=== PATIENT | female | born 1990 | race Caucasian/White ===

== ENCOUNTER 2016-10-15 12:52 | Emergency (ER) | payer MEDICAID ==
[~2016-10-15] VITALS: Ht 152.4 cm; Wt 75.0 kg
[2016-10-15 12:55] VITALS: Ht 152.4 cm; Wt 75.0 kg
[2016-10-15] MEDS ORDERED: ONDANSETRON (ODT) 4 MG TAB ODT STA (14:39)
[2016-10-15 14:59] LABS: URINE BLOOD (Dip) POC 2+ (NEGATIVE)
[2016-10-15 15:16] LABS: ADD SCAN DIFF NO
[2016-10-15 15:18] LABS: ADD UMIC YES; URINE BILIRUBIN (Dip) NEGATIVE (NEGATIVE); URINE BLOOD (Dip) 3+ (NEGATIVE); URINE GLUCOSE (Dip) NEGATIVE (NEGATIVE); URINE KETONES (Dip) 15 (NEGATIVE); URINE LEUKOCYTE ESTERASE (Dip) NEGATIVE (NEGATIVE); URINE NITRITE (Dip) NEGATIVE (NEGATIVE); URINE TOTAL PROTEIN (Dip) 1+ (NEGATIVE); URINE UROBILINOGEN (Dip) 0.2 E.U./dL (0.1-1.0)
[2016-10-15 15:19] LABS: BASOPHIL # 0.1 10^3/ul (0.0-0.1); BASOPHILS % 0.5 % (0.0-2.0); EOSINOPHILS % 0.4 % (0.0-7.0); HEMATOCRIT 37.4 % (37.0-47.0); HEMOGLOBIN 12.6 g/dl (12.0-16.0); LYMPHOCYTES # 1.3 10^3/ul (0.8-2.9); LYMPHOCYTES % 13.9 % (15.0-51.0); MEAN CORPUSCULAR HGB CONC 33.7 g/dl (32.0-37.0); MONOCYTE # 0.5 10^3/ul (0.3-0.9); MONOCYTES % 5.7 % (0.0-11.0); NEUTROPHIL # 7.4 10^3/ul (1.6-7.5); NEUTROPHILS % 79.1 % (39.0-77.0); PLATELET COUNT 313 10^3/UL (140-415); RED CELL DISTRIBUTION WIDTH 13.2 % (11.5-14.5); WHITE BLOOD COUNT 9.4 10^3/ul (4.8-10.8)
--- NOTE | 2016-10-15 15:23 | RADRPT ---
PROCEDURE: XR Chest. CLINICAL INDICATION: chest pain, abdominal pain TECHNIQUE: Single frontal view of the chest was obtained COMPARISON: None FINDINGS: The heart and mediastinum are within normal limits. The lungs are clear. There is no pleural effusion or pneumothorax. RPTAT: AA IMPRESSION: No acute disease. .Kang Schmid MD, MD Date Time Electronically viewed and signed by .Kang Schmid MD, on 10/15/2016 15:22 .S/
[2016-10-15 15:38] LABS: ALBUMIN 4.7 g/dl (3.3-4.9); ALBUMIN/GLOBULIN RATIO 1.3; BILIRUBIN,INDIRECT 0.1 mg/dl (0-1.1); BILIRUBIN,TOTAL 0.1 mg/dl (0.2-1.3); CALCIUM 9.7 mg/dl (8.4-10.2); CREATININE 0.62 mg/dl (0.44-1.00); TOTAL PROTEIN 8.3 g/dl (6.1-8.1)
[2016-10-15 15:39] LABS: URINE COLOR DARK YELLOW (YELLOW)
[2016-10-15 15:45] LABS: BACTERIA,URINE FEW; SQUAMOUS EPITHELIAL CELL,UR MODERATE; URINE RBCS >50 /HPF (0)
[2016-10-15] MEDS ORDERED: LORA-441 PO (16:18)
[2016-10-15 16:43] VITALS: BP 127/86; PULSE 71; RESP 18
--- NOTE | 2016-10-15 17:23 | ERD ---
ER Documentation Chief Complaint Date/Time DATE: 10/15/16 TIME: 17:20 Chief Complaint SOB X 1 MONTH,FEELING WEAK HPI This 26-year-old female complains of intermittent sensation of weakness and shortness of breath for last month. She occasionally gets nauseous for some numbness and tingling around her lips and her hands. She has a diagnosis in the past of anxiety but does not have these type symptoms. She denies any recent illnesses such as fevers, abdominal pain, urinary complaints. Patient denies a sensation of stress or anxiety. ROS All systems reviewed and are negative except as per history of present illness. Medications Home Meds Active Scripts Lorazepam* (Ativan*) 0.5 Mg Tablet, 0.5 MG PO Q8, #10 TAB Prov:JESSICA DIANA MD 10/15/16 PMhx/Soc History of Surgery: No Anesthesia Reaction: No Hx Neurological Disorder: No Hx Respiratory Disorders: No Hx Cardiac Disorders: No Hx Psychiatric Problems: No Hx Miscellaneous Medical Probl: No Hx Alcohol Use: No Hx Substance Use: No Hx Tobacco Use: No Smoking Status: Never smoker Physical Exam Vitals Vital Signs Date Time Temp Pulse Resp B/P Pulse Ox O2 Delivery O2 Flow Rate FiO2 10/15/16 16:43 71 18 127/86 99 10/15/16 12:55 98.3 92 18 133/63 99 Physical Exam Const: [] Alert, [id number] although in a wheelchair presumably due to sensation of weakness. Head: Atraumatic Eyes: Normal Conjunctiva ENT: Normal External Ears, Nose and Mouth. TMs and oropharynx normal. Neck: Full range of motion..~ No meningismus. Resp: Clear to auscultation bilaterally Cardio: Regular rate and rhythm, no murmurs Abd: Soft, non tender, non distended. Normal bowel sounds Skin: No petechiae or rashes Back: No midline or flank tenderness Ext: No cyanosis, or edema Neur: Awake and alert. No appreciable focal neurologic deficits. Normal gait. Psych: Normal Mood and Affect Result Diagram: 10/15/16 1505 10/15/16 1505 Results 24 hrs Laboratory Tests Test 10/15/16 15:02 10/15/16 15:03 10/15/16 15:05 Bedside Urine pH (LAB) 8.5 Bedside Urine Protein (LAB) 2+ Bedside Urine Glucose (UA) Negative Bedside Urine Ketones (LAB) Trace Bedside Urine Blood 2+ Bedside Urine Nitrite (LAB) Negative Bedside Urine Leukocyte Esterase (L Negative Urine Color DARK YELLOW Urine Clarity CLOUDY Urine pH 8.5 Urine Specific [place] 1.020 Urine Ketones 15 Urine Nitrite NEGATIVE Urine Bilirubin NEGATIVE Urine Urobilinogen 0.2 E.U./dL Urine Leukocyte Esterase NEGATIVE Urine Microscopic RBC >50/HPF Urine Microscopic WBC 0-2/HPF Urine Squamous Epithelial Cells MODERATE Urine Bacteria FEW Urine Hemoglobin 3+ Urine Glucose NEGATIVE% Urine Total Protein 1+ White Blood Count 9.410^3/ul Red Blood Count 4.2010^6/ul Hemoglobin 12.6g/dl Hematocrit 37.4% Mean Corpuscular Volume 89.0fl Mean Corpuscular Hemoglobin 30.0pg Mean Corpuscular Hemoglobin Concent 33.7g/dl Red Cell Distribution Width 13.2% Platelet Count 20881^3/UL Mean Platelet Volume 11.0fl Neutrophils % 79.1% Lymphocytes % 13.9% Monocytes % 5.7% Eosinophils % 0.4% Basophils % 0.5% Nucleated Red Blood Cells % 0.0/100WBC Neutrophils # 7.410^3/ul Lymphocytes # 1.310^3/ul Monocytes # 0.510^3/ul Eosinophils # 0.010^3/ul Basophils # 0.110^3/ul Nucleated Red Blood Cells # 0.010^3/ul Sodium Level 143mmol/L Potassium Level 4.0mmol/L Chloride Level 108mmol/L Carbon Dioxide Level 24mmol/L Anion Gap 15 Blood Urea Nitrogen 12mg/dl Creatinine 0.62mg/dl Glucose Level 100mg/dl Calcium Level 9.7mg/dl Total Bilirubin 0.1mg/dl Direct Bilirubin 0.00mg/dl Indirect Bilirubin 0.1mg/dl Aspartate Amino Transf (AST/SGOT) 20IU/L Alanine Aminotransferase (ALT/SGPT) 25IU/L Alkaline Phosphatase 69IU/L Total Protein 8.3g/dl Albumin 4.7g/dl Globulin 3.60g/dl Albumin/Globulin Ratio 1.30 Lipase 94U/L Thyroid Stimulating Hormone (TSH) 1.430MIU/L Current Medications Medications (Trade) Dose Ordered Sig/Cee Route PRN Reason Start Time Stop Time Status Last Admin Dose Admin Ondansetron HCl (Zofran Odt) 8 mg ONCE STAT ODT 10/15/16 14:39 10/15/16 14:41 DC 10/15/16 14:54 Procedures/MDM Patient presents with somatic complaints of uncertain etiology. CBC and CMP and urine is negative. TSH was normal . hCG is negative. EKG: Rate/Rhythm: [Normal Sinus Rhythm]. Lyn[place] [address] QRS, ST, T-waves: [No changes consistent w/ acute ischemia] Impression: [No evidence of ischemia or arrhythmia] Chest X-ray 1V Interpreted by me: Soft Tissue: No acute abnormalities Bones: No acute abnormalities Mediastinum/Cardiac Silhouette/Lungs: [No acute abnormalities]. Impression- normal 1 view chest XRAY Patient was given Zofran 8 mg by mouth for mild nausea. Patient was in no apparent distress had a normal exam benign abdomen clear lungs on serial exam. This patient presents with multiple somatic complaints of uncertain etiology including fatigue, paresthesias, sensation of shortness of breath, dizziness without signs or symptoms to suggest emergent cause of presenting complaints. She may have an anxiety component to her complaints. She will be treated with short trial of Ativan and further observation instruction to follow-up with primary care doctor. The patient was stable with no new complaints during the ER course. Clinically, there is no current evidence to suggest meningitis, sepsis, acute abdomen, pneumonia, acute coronary syndrome, pulmonary embolism, or any other emergent condition appearing to require further evaluation or hospitalization. The patient should certainly return for any new or worsening symptoms per the aftercare instructions. They should otherwise follow-up with her primary care doctor for reevaluation this week. Departure Diagnosis: Primary Impression: Shortness of breath Condition: Stable Patient Instructions: Coping with Shortness of Breath: Controlling Stress, Symptoms With Uncertain Cause Additional Instructions: All examinations normal today. Uncertain cause of symptoms. We will treat for possible anxiety and hyperventilation. See primary doctor for follow-up for further evaluation. Otherwise recheck for new or worsening symptoms or JESSICA DIANA MD Oct 15, 2016 17:23
== END 2016-10-15 16:45 | disposition home or self-care (01) ==
LOC: FTE 12:52
DX: R06.02 Shortness of breath (principal); R11.0 Nausea
CPT/HCPCS: 71010; 80053; 81001; 83690; 84443; 85025; 93005; Z7502; Z7610; 81003